=== PATIENT | female | born 1985 | race Two or more races ===

== ENCOUNTER 2021-12-24 03:15 | Emergency (ER) | payer MEDICAID ==
[~2021-12-24] VITALS: Ht 157.5 cm; Wt 74.8 kg
[2021-12-24 03:27] VITALS: BP 140/90
--- NOTE | 2021-12-24 03:30 | NUR ---
TO LOBBY A/W BED AMBULATORY
--- NOTE | 2021-12-24 05:18 | NUR ---
Patient ambulated to chair C.
--- NOTE | 2021-12-24 05:20 | NUR ---
Dr. Sutherland examining patient.
[2021-12-24] MEDS ORDERED: HYDROcodone/APAP 5/325 MG 1 TAB TAB PO ONE (05:30)
[2021-12-24] MEDS ORDERED: AMOX1TAB8 PO (05:40)
[2021-12-24] MEDS ORDERED: NAPR-54 PO (05:40)
[2021-12-24] MEDS ORDERED: ACET-8386 PO (05:40)
[2021-12-24] MEDS ORDERED: CIPR7.5S OT (05:40)
[2021-12-24 05:52] VITALS: BP 135/82
--- NOTE | 2021-12-24 05:52 | NUR ---
Patient discharged with v/s stable. Written and verbal after care instructions given and explained for Otitis Externa. Patient alert, oriented and verbalized understanding of instructions. Ambulatory with steady gait. All questions addressed prior to discharge. ID band removed. Patient advised to follow up with PMD. Rx of Naproxen, Ciprofloxacion, Amox-Clav given. Patient educated on indication of medication including possible reaction and side effects. Opportunity to ask questions provided and answered.
[2021-12-25] MEDS ORDERED: ACET-8386 PO (09:41)
[2021-12-25] MEDS ORDERED: AMOX1TAB8 PO (09:41)
== END 2021-12-24 05:52 | disposition home or self-care (01) ==
LOC: MED 03:15
DX: H60.92 Unspecified otitis externa, left ear (principal); Z79.899 Other long term (current) drug therapy
CPT/HCPCS: 99283